=== PATIENT | male | born 1995 | race Caucasian/White ===

== ENCOUNTER 2024-08-25 21:14 | Emergency (ER) | payer SELFPAY ==
[2024-08-25 21:20] VITALS: BP 169/92; PULSE 87; RESP 20; TEMP 36.7; O2SAT 98; BMI 33.9
--- NOTE | 2024-08-25 21:27 | ED_ITS ---
<Statement entered by Jolene Pereira DO - 08/25/24 22:39> I was consulted by the MELISSA, and we discussed the complexity of the problems being addressed. I approved the treatment and management plan for this patient's care in the emergency department, thus performing a substantive portion of the medical decision making. Jolene Pereira DO Discharge Plan Disposition Patient Disposition: Home, Self-Care Condition: Good Prescriptions Prescriptions: New amoxicillin-pot clavulanate 875-125 mg tablet 1 tab PO BID 7 Days Qty: 14 0RF Referrals Follow up/Referrals: Provider,Referral, MD [Referring] - See instructions Clinical Impressions Clinical Impression: Pain, dental Instructions Patient Instructions: DI for Dental Pain Print Language Print Language: Czech Discharge ED Provider: Jolene Pereira General Adult HPI General Chief complaint: PAIN Stated complaint: dental pain Time Seen by Provider: 08/25/24 21:20 Mode of Arrival: Ambulatory Source of Information: Patient Description of Symptoms (Recalled from ER Triage Doc. by RN): Pt states he has had toothache since noon in left upper tooth History of Present Illness HPI narrative: 29-year-old male presents to the emergency department with left frontal dental pain, patient states the pain started today, does have a history of dental caries/poor dentition, has yet to follow-up with his dentist, he tells me that he feels like I need antibiotics . He is taken ibuprofen and Tylenol today with some relief to his symptomatology, denies any fever chills chest pain headache shortness of breath nausea vomiting lightheadedness, no abdominal pain, no urinary type symptomatology. Patient has coronary a smoker, denies any alcohol or drug use, has no other relevant past medical history takes no other medications at home. triage vitals grossly unremarkable. He denies any dental trauma, or history of avulsed tooth. Onset (ago): hour(s) Related Data Previous Rx's ?Medication ?Instructions ?Recorded amoxicillin 875 mg-potassium 1 tab PO BID 7 days #14 tabs 08/25/24 clavulanate 125 mg tablet Allergies Allergy/AdvReac Type Severity Reaction Status Date / Time No Known Allergies Allergy Unverified 06/03/17 14:57 [facility] Disclaimer: The information contained in this section may have been updated after the patient was seen, as this information can be updated by other users. Social History Smoking Status: Current every day smoker alcohol intake: never current occupational status: other Travel in the last 8 weeks: None ROS Obtained: Yes All systems reviewed & no additional complaints except as documented Physical Exam General General appearance: alert and in no apparent distress Head Head exam: atraumatic and normocephalic Eye Eye exam: Present PERRL and EOMI ENT ENT exam: Present normal oropharynx, mucous membranes moist and other (Patient has poor dentition throughout, there is an area of dental caries/tooth decay on the left lateral incisor, where patient points to his pain, there is no obvious periapical or periodontal abscess will be amicable for drainage, oropharynx is grossly unremarkable, no erythema, uvula is midline, ) Neck Neck exam: Present normal inspection Chest Chest inspection: Present normal inspection and symmetric chest wall rise Respiratory Respiratory exam: Present normal lung sounds bilaterally; Absent respiratory distress Cardiovascular Cardiovascular exam: Present regular rate and normal rhythm Abdominal Exam Abdominal exam: Present soft; Absent tenderness Extremities Exam Extremities exam: Present normal inspection Neurological Exam Neurological exam: Present alert and oriented X3 Psychiatric Psychiatric exam: Present normal affect Skin Skin exam: Present warm and dry Medical Decision Making Medical Records Medical records reviewed: Yes I reviewed the patient's medical records. Screening: Per USPSTF and CDC recommendations, given the prevalence of disease in our region, it is our hospital?s policy to screen for HIV and viral Hepatitis for all patients aged 18 and over and those with ongoing risk factors. Nicanor Inquiry Pt receiving controlled substance: No N[place]or was queried for this patient: No Vital Signs: 08/25/24 21:20 Temperature 98.0 F Temperature Source Oral Pulse Rate [Right Brachial] 87 Respiratory Rate 20 Blood Pressure [Right Arm] 169/92 H Blood Pressure Mean [Right Arm] 117 Blood Pressure Source [Right Arm] Automatic Cuff Blood Pressure Position [Right Arm] Sitting 02 Sat by Pulse Oximetry 98 Oxygen Delivery Method Room Air Orders (Tests/Meds): ED MEDICATIONS Generic Name Dose Route Start Last Admin Trade Name Freq PRN Reason Stop Dose Admin Lidocaine HCl 15 ml 08/25/24 21:34 Lidocaine 2% Viscous Phylicia 15ml Udc PO 08/25/24 21:35 ONCE ONE ORDERS Category Date Time Status HIV Combo Routine Lab 08/25/24 21:23 Ordered Hepatitis C Ab Qual. W/ RFX Routine Lab 08/25/24 21:23 Ordered Medical Decision Narrative: 29-year-old male presents to the emergency department with dental pain, differential diagnose include but limited to, dental caries, periodontal abscess, periapical abscess. Will give patient dental balls/tooth ball for symptomatic relief, offered patient further analgesia, he denied at this time, would like to pursue outpatient treatment with antibiotics I think this is appropriate. There is no obvious periapical or peridental abscess that would be amicable to drainage at this time. Recommend follow-up with dental provider. Tricked ED return precautions given, there is no signs or symptoms of any cellulitis/facial cellulitis, no systemic or other constitutional symptoms. Patient voiced understanding agree with current treatment plan/discharge plan. Will prescribe the patient Augmentin 875 mg p.o. twice daily for 7 days or until dental follow- up. Critical Care Critical Care Time Critical Care Time: No
[2024-08-25] MEDS: LIDOCAINE 2% VISCOUS SOL 15ML UDC 15 ML PO (21:41)
[2024-08-25] MEDS: TETRACAINE/BENZOCAINE/BUTAMBEN 56 GM SPRAY TP (21:41)
[2024-08-25 21:46] VITALS: BP 169/92; PULSE 87; RESP 20; TEMP 36.7; O2SAT 98
== END 2024-08-25 21:51 | disposition home or self-care (01) ==
PROVIDERS: Emergency Provider Emergency Medicine; PCP Family Medicine
DX: K08.89 Other specified disorders of teeth and supporting structures (principal)
CPT/HCPCS: 99283